=== PATIENT | female | born 1965 | race Two or more races ===

== ENCOUNTER → 2018-08-31 | Outpatient (CLI) | payer BC ==
[~2018-08-31] MED LIST: NEOM0.1S10; [UNRECOGNIZED DRUG - OTHER]
[2018-08-31 08:47] LABS: Basophils # (auto) 0 uL; Basophils % (auto) 0.5 % (0.0-2.0); Eosinophils # (auto) 0.1 uL; Eosinophils % (auto) 1.6 % (0.0-7.0); Hematocrit 41.9 % (36.0-46.0); Hemoglobin 14.1 g/dL (12.2-16.2); Lymphocytes # (auto) 2.7 uL; Lymphocytes % (auto) 38.4 % (10.0-50.0); Mean Corpuscular Hemoglobin 28.8 pg (28.0-32.0); Mean Corpuscular Hgb Conc. 33.6 g/dL (32.0-36.0); Mean Corpuscular Volume 85.7 fL (80.0-100.0); Monocytes # (auto) 0.5 uL; Monocytes % (auto) 7.3 % (0.0-12.0); Neutrophils # (auto) 3.6 uL; Neutrophils % (auto) 52.2 % (37.0-80.0); Nucleated Red Blood Cells % 0.1 %; Platelet Count (auto) 421 10^3/uL (140-450); Red Blood Cells 4.89 10^6/uL (4.0-5.20); Urine Amorphous Crystal MANY /hpf (None Seen); Urine Bacteria NONE SEEN /hpf (None Seen); Urine Blood Negative /uL (Negative); Urine WBC <1 /hpf (0 - 5)
[2018-08-31 09:03] LABS: Chloride 103 mmol/L (98-107); Potassium 4.1 mmol/L (3.5-5.1); Sodium 139 mmol/L (136-145)
[2018-08-31 09:23] LABS: Alanine Aminotransferase 21 U/L (13-56); Albumin 3.5 g/dL (3.4-5.0); Alkaline Phosphatase 90 U/L (45-117); Anion Gap 6 (5-15); Aspartate Aminotransferase 10 U/L (15-37); BUN/Creatinine Ratio 30.8; Bilirubin, Total 0.5 mg/dL (0.2-1.0); Blood Urea Nitrogen 20 mg/dL (7-18); Calcium 8.9 mg/dL (8.5-10.1); Carbon Dioxide 30 mmol/L (21-32); Cholesterol 206 mg/dL (< 200); GFR African American > 60 mL/min; GFR Non-African American > 60 mL/min; Glucose 104 mg/dL (74-106); HDL Cholesterol 42 mg/dL (40-59); LDL Cholesterol 151 mg/dL (< 100); Total Protein 7.3 g/dL (6.4-8.2); Triglycerides 121 mg/dL (< 150)
== END | disposition home or self-care (01) ==
LOC: LAB 07:32
PROVIDERS: ATTEND Nurse Practitioner
DX: E78.5 Hyperlipidemia, unspecified (principal)
CPT/HCPCS: 36415; 80053; 80061; 81001; 82306; 83036; 84443; 85025

== ENCOUNTER 2021-04-05 08:22 | Inpatient (IN) | payer BC ==
[~2021-04-05] VITALS: Ht 170.2 cm; Wt 107.0 kg
[2021-04-05 10:24] LABS: Basophils # (auto) 0 10 ^3/uL (0-0.2); Basophils % (auto) 0.1 % (0.0-2.0); Eosinophils # (auto) 0 10 ^3/uL (0-0.8); Hematocrit 40.9 % (36.0-46.0); Hemoglobin 14.2 g/dL (12.2-16.2); Lymphocytes # (auto) 0.5 10 ^3/uL (0.4-5.4); Lymphocytes % (auto) 6.7 % (10.0-50.0); Mean Corpuscular Hemoglobin 29.1 pg (28.0-32.0); Mean Corpuscular Hgb Conc. 34.7 g/dL (32.0-36.0); Mean Corpuscular Volume 83.9 fL (80.0-100.0); Monocytes # (auto) 0.3 10 ^3/uL (0-1.3); Monocytes % (auto) 4.7 % (0.0-12.0); Neutrophils # (auto) 6.6 10 ^3/uL (1.6-8.6); Neutrophils % (auto) 88.5 % (37.0-80.0); Nucleated Red Blood Cells % 0.1 %; Red Blood Cells 4.87 10^6/uL (4.0-5.20); Red Cell Distribution Width 13.7 % (11.8-14.3); White Blood Cell 7.4 10^3/uL (4.4-10.8)
[2021-04-05 10:40] LABS: Albumin 2.6 g/dL (3.4-5.0); Anion Gap 6 (5-15); Blood Urea Nitrogen 15 mg/dL (7-18); Calcium 8.7 mg/dL (8.5-10.1); Carbon Dioxide 30 mmol/L (21-32); Chloride 102 mmol/L (98-107); Glucose 130 mg/dL (74-106); Magnesium 2.6 mg/dL (1.6-2.6); Sodium 138 mmol/L (136-145)
[2021-04-05 10:46] LABS: Alanine Aminotransferase 28 U/L (13-56); Alkaline Phosphatase 54 U/L (45-117); Aspartate Aminotransferase 43 U/L (15-37); Bilirubin, Total 0.4 mg/dL (0.2-1.0); GFR African American 133 mL/min; GFR Non-African American 110 mL/min; Total Protein 7.3 g/dL (6.4-8.2)
[2021-04-05] MEDS ORDERED: MORPHINE SULFATE INJECTION 2 MG/ML SYRG IV PRN ×2 (13:30)
[2021-04-05] MEDS ORDERED: DOCUSATE CALCIUM 240 MG CAP PO PRN (13:30)
[2021-04-05] MEDS ORDERED: SODIUM CHLORIDE 0.9% 1,000 ML IV ONE (13:30)
[2021-04-05] MEDS ORDERED: LABETALOL HCL 5 MG/ML 4ML SYRINGE IV PRN (13:30)
[2021-04-05] MEDS ORDERED: ONDANSETRON HCL 4 MG/2 ML VIAL IV PRN (13:30)
[2021-04-05] MEDS ORDERED: NITROGLYCERIN 0.4 MG SL TAB SL PRN (13:30)
[2021-04-05] MEDS ORDERED: DEXTROSE (50%) 50ML SYRG IV PRN (13:30)
[2021-04-05] MEDS ORDERED: ACETAMINOPHEN 500 MG TAB PO PRN (13:30)
[2021-04-05 15:01] VITALS: BP 137/78
[2021-04-05] MEDS: CLINDAMYCIN 300MG IV 50 ML IV SCH ×2 (15:27→21:53)
[2021-04-05] MEDS: ACCU-CHEK COMFORT CURVE STRIP VI SCH ×2 (16:00→20:08)
[2021-04-05] MEDS: InsuLIN REG 1unit/0.01ml Soln (100units/ml) SC SCH ×2 (16:00→20:11)
[2021-04-05 17:00] VITALS: BP 155/96
[2021-04-05] MEDS ORDERED: LISI20TA28 PO (17:59)
[2021-04-05 21:40] VITALS: BP 130/81
[2021-04-05] MEDS: ENOXAPARIN SOD 40 MG/0.4 ML SYRINGE SC SCH (21:53)
[2021-04-05] MEDS: ALBUTEROL SULF HFA 90MCG INH 200DOSE IN PRN (22:29)
[2021-04-05] MEDS: BUDESONIDE (INHALATION) 180 MCG IH IN SCH (22:29)
[2021-04-06] MEDS: ACCU-CHEK COMFORT CURVE STRIP VI SCH ×6 (00:13→21:51)
[2021-04-06] MEDS: InsuLIN REG 1unit/0.01ml Soln (100units/ml) SC SCH ×6 (03:59→22:13)
[2021-04-06 05:38] VITALS: BP 114/83
[2021-04-06] MEDS: CLINDAMYCIN 300MG IV 50 ML IV SCH (05:49)
[2021-04-06 06:59] LABS: Basophils # (auto) 0 10 ^3/uL (0-0.2); Basophils % (auto) 0.1 % (0.0-2.0); Eosinophils # (auto) 0 10 ^3/uL (0-0.8); Hemoglobin 13.2 g/dL (12.2-16.2); Lymphocytes # (auto) 0.8 10 ^3/uL (0.4-5.4); Lymphocytes % (auto) 10.9 % (10.0-50.0); Mean Corpuscular Hemoglobin 28.5 pg (28.0-32.0); Mean Corpuscular Hgb Conc. 33.8 g/dL (32.0-36.0); Mean Corpuscular Volume 84.5 fL (80.0-100.0); Monocytes # (auto) 0.3 10 ^3/uL (0-1.3); Neutrophils # (auto) 6.4 10 ^3/uL (1.6-8.6); Red Blood Cells 4.62 10^6/uL (4.0-5.20); Red Cell Distribution Width 13.6 % (11.8-14.3); White Blood Cell 7.5 10^3/uL (4.4-10.8)
[2021-04-06 07:08] LABS: INR 1.06 (0.9-1.15)
[2021-04-06] MEDS: BUDESONIDE (INHALATION) 180 MCG IH IN SCH ×2 (07:11→22:00)
[2021-04-06] MEDS: ALBUTEROL SULF HFA 90MCG INH 200DOSE IN PRN (07:11)
[2021-04-06 07:17] LABS: Potassium 3.6 mmol/L (3.5-5.1)
[2021-04-06 07:29] LABS: Thyroid Stimulating Hormone 0.35 uIU/mL (0.358-3.74)
[2021-04-06 07:34] LABS: Albumin 2.3 g/dL (3.4-5.0); BUN/Creatinine Ratio 34.9; Bilirubin, Total 0.5 mg/dL (0.2-1.0); CRP High Sensitivity 7.38 mg/dL (< 0.3); Calcium 8.1 mg/dL (8.5-10.1); Total Protein 6.3 g/dL (6.4-8.2)
[2021-04-06] MEDS: AZITHROMYCIN 500MG/ 250ML 250 ML IV SCH (08:52)
[2021-04-06] MEDS: ZINC SULFATE 220mg CAP or TAB PO SCH (08:52)
[2021-04-06] MEDS: ASCORBIC ACID 1,000 MG TAB PO SCH (08:53)
[2021-04-06] MEDS: PANTOPRAZOLE 40 MG TAB PO SCH (08:53)
[2021-04-06] MEDS: ENOXAPARIN SOD 40 MG/0.4 ML SYRINGE SC SCH ×2 (08:53→21:51)
[2021-04-06] MEDS: CHOLECALCIFEROL (VITD3) 2,000 UNIT CAP/TAB PO SCH (08:53)
[2021-04-06 09:00] VITALS: BP 137/82
[2021-04-06] MEDS ORDERED: DexAMETHasone INJECTION 10 MG in D5W 5% 50 ML IV SCH (10:00)
[2021-04-06] MEDS: DOXYCYCLINE 100MG/250ML 250 ML IV SCH ×2 (10:30→21:51)
[2021-04-06] MEDS ORDERED: REMDESIVIR PER PHARMACY 0 ML IV SCH (10:30)
[2021-04-06] MEDS ORDERED: FUROSEMIDE 40 MG/4 ML VIAL IV ONE (10:30)
[2021-04-06] MEDS ORDERED: DEXTROSE (50%) 50ML SYRG IV PRN (10:30)
[2021-04-06 13:00] VITALS: BP 108/59
[2021-04-06] MEDS ORDERED: REMDESIVIR 200 MG in NS 210ml LOADING DOSE ADULT IV ONE (14:00)
[2021-04-06 17:00] VITALS: BP 109/69
[2021-04-06 22:00] VITALS: BP 125/74
[2021-04-07] MEDS: ALBUTEROL SULF HFA 90MCG INH 200DOSE IN PRN ×3 (01:35→22:24)
[2021-04-07 05:00] VITALS: BP 102/67
[2021-04-07] MEDS: InsuLIN REG 1unit/0.01ml Soln (100units/ml) SC SCH ×4 (06:59→22:10)
[2021-04-07] MEDS: ACCU-CHEK COMFORT CURVE STRIP VI SCH ×4 (06:59→21:21)
[2021-04-07 07:26] LABS: Basophils # (auto) 0.1 10 ^3/uL (0-0.2); Basophils % (auto) 0.6 % (0.0-2.0); Eosinophils # (auto) 0 10 ^3/uL (0-0.8); Hematocrit 40.8 % (36.0-46.0); Hemoglobin 14.3 g/dL (12.2-16.2); Lymphocytes # (auto) 0.9 10 ^3/uL (0.4-5.4); Lymphocytes % (auto) 10.1 % (10.0-50.0); Mean Corpuscular Hemoglobin 29.6 pg (28.0-32.0); Mean Corpuscular Hgb Conc. 35.1 g/dL (32.0-36.0); Mean Corpuscular Volume 84.4 fL (80.0-100.0); Monocytes # (auto) 0.5 10 ^3/uL (0-1.3); Monocytes % (auto) 5.8 % (0.0-12.0); Neutrophils # (auto) 7.3 10 ^3/uL (1.6-8.6); Neutrophils % (auto) 83.5 % (37.0-80.0); Nucleated Red Blood Cells % 0.1 %; Red Blood Cells 4.84 10^6/uL (4.0-5.20); Red Cell Distribution Width 13.5 % (11.8-14.3); White Blood Cell 8.7 10^3/uL (4.4-10.8)
[2021-04-07] MEDS: BUDESONIDE (INHALATION) 180 MCG IH IN SCH ×2 (07:36→22:23)
[2021-04-07 07:39] LABS: Albumin 2.4 g/dL (3.4-5.0); Calcium 8.3 mg/dL (8.5-10.1); Potassium 3.6 mmol/L (3.5-5.1)
[2021-04-07 07:41] LABS: BUN/Creatinine Ratio 42.6
[2021-04-07 07:43] LABS: Bilirubin, Total 0.6 mg/dL (0.2-1.0); Total Protein 7.2 g/dL (6.4-8.2)
[2021-04-07 09:00] VITALS: BP 110/71
[2021-04-07] MEDS: AZITHROMYCIN 500MG/ 250ML 250 ML IV SCH (09:45)
[2021-04-07] MEDS: CHOLECALCIFEROL (VITD3) 2,000 UNIT CAP/TAB PO SCH (10:00)
[2021-04-07] MEDS: ASCORBIC ACID 1,000 MG TAB PO SCH (10:00)
[2021-04-07] MEDS: POTASSIUM CHL 20 Meq TABLET PO SCH (10:00)
[2021-04-07] MEDS: ZINC SULFATE 220mg CAP or TAB PO SCH (10:00)
[2021-04-07] MEDS: PANTOPRAZOLE 40 MG TAB PO SCH (10:00)
[2021-04-07] MEDS: ENOXAPARIN SOD 40 MG/0.4 ML SYRINGE SC SCH ×2 (10:00→21:21)
[2021-04-07] MEDS: DexAMETHasone SOD PHOS 10MG/1ML VIAL INJ IV SCH (10:00)
[2021-04-07] MEDS: FUROSEMIDE 40 MG/4 ML VIAL IV SCH (10:00)
[2021-04-07] MEDS: DOXYCYCLINE 100MG/250ML 250 ML IV SCH ×2 (10:30→21:21)
[2021-04-07 13:00] VITALS: BP 112/66
[2021-04-07] MEDS: REMDESIVIR 100mg 100 MG in SODIUM CHL 0.9% 230 ML IV SCH (15:00)
[2021-04-07 17:00] VITALS: BP 120/79
[2021-04-07 22:00] VITALS: BP 112/76
[2021-04-08] MEDS ORDERED: TEMAZEPAM 15 MG CAP PO ONE (00:45)
[2021-04-08 05:00] VITALS: BP 117/76
[2021-04-08 06:49] LABS: Basophils # (auto) 0 10 ^3/uL (0-0.2); Eosinophils # (auto) 0 10 ^3/uL (0-0.8); Lymphocytes # (auto) 1.2 10 ^3/uL (0.4-5.4); Monocytes # (auto) 0.6 10 ^3/uL (0-1.3); Neutrophils % (auto) 86.7 % (37.0-80.0)
[2021-04-08 06:54] LABS: Basophils % (auto) 0.2 % (0.0-2.0); Hematocrit 39.4 % (36.0-46.0); Hemoglobin 13.2 g/dL (12.2-16.2); Lymphocytes % (auto) 8.9 % (10.0-50.0); Mean Corpuscular Hemoglobin 28.1 pg (28.0-32.0); Mean Corpuscular Hgb Conc. 33.6 g/dL (32.0-36.0); Mean Corpuscular Volume 83.6 fL (80.0-100.0); Monocytes % (auto) 4.2 % (0.0-12.0); Neutrophils # (auto) 11.6 10 ^3/uL (1.6-8.6); Red Blood Cells 4.71 10^6/uL (4.0-5.20); Red Cell Distribution Width 13.5 % (11.8-14.3); White Blood Cell 13.4 10^3/uL (4.4-10.8)
[2021-04-08] MEDS: ACCU-CHEK COMFORT CURVE STRIP VI SCH ×4 (06:58→21:41)
[2021-04-08] MEDS: InsuLIN REG 1unit/0.01ml Soln (100units/ml) SC SCH ×4 (06:59→22:05)
[2021-04-08] MEDS: ALBUTEROL SULF HFA 90MCG INH 200DOSE IN PRN ×2 (07:10→21:43)
[2021-04-08] MEDS: BUDESONIDE (INHALATION) 180 MCG IH IN SCH ×2 (07:10→21:43)
[2021-04-08 07:13] LABS: Albumin 2.2 g/dL (3.4-5.0); Calcium 8.3 mg/dL (8.5-10.1); Potassium 3.6 mmol/L (3.5-5.1)
[2021-04-08 07:16] LABS: BUN/Creatinine Ratio 59.3
[2021-04-08 07:18] LABS: Bilirubin, Total 0.5 mg/dL (0.2-1.0); Total Protein 6.4 g/dL (6.4-8.2)
[2021-04-08 09:00] VITALS: BP 123/75
[2021-04-08] MEDS: CHOLECALCIFEROL (VITD3) 2,000 UNIT CAP/TAB PO SCH (09:56)
[2021-04-08] MEDS: POTASSIUM CHL 20 Meq TABLET PO SCH (09:56)
[2021-04-08] MEDS: ZINC SULFATE 220mg CAP or TAB PO SCH (09:56)
[2021-04-08] MEDS: FUROSEMIDE 40 MG/4 ML VIAL IV SCH (09:56)
[2021-04-08] MEDS: PANTOPRAZOLE 40 MG TAB PO SCH (09:56)
[2021-04-08] MEDS: ASCORBIC ACID 1,000 MG TAB PO SCH (09:56)
[2021-04-08] MEDS: ENOXAPARIN SOD 40 MG/0.4 ML SYRINGE SC SCH ×2 (09:56→21:41)
[2021-04-08] MEDS: DexAMETHasone SOD PHOS 10MG/1ML VIAL INJ IV SCH (09:56)
[2021-04-08] MEDS: DOXYCYCLINE 100MG/250ML 250 ML IV SCH ×2 (09:57→21:41)
[2021-04-08 13:00] VITALS: BP 118/67
[2021-04-08] MEDS: REMDESIVIR 100mg 100 MG in SODIUM CHL 0.9% 230 ML IV SCH (15:00)
[2021-04-08 16:44] VITALS: BP 118/67
[2021-04-08 17:00] VITALS: BP 127/80
[2021-04-08 22:00] VITALS: BP 125/68
[2021-04-09 05:24] VITALS: BP 106/59
[2021-04-09 05:51] LABS: Basophils # (auto) 0 10 ^3/uL (0-0.2); Eosinophils # (auto) 0 10 ^3/uL (0-0.8); Monocytes # (auto) 0.4 10 ^3/uL (0-1.3); Red Cell Distribution Width 13.6 % (11.8-14.3)
[2021-04-09 05:53] LABS: Basophils % (auto) 0.1 % (0.0-2.0); Eosinophils % (auto) 0.2 % (0.0-7.0); Hematocrit 40.2 % (36.0-46.0); Lymphocytes # (auto) 1.5 10 ^3/uL (0.4-5.4); Lymphocytes % (auto) 11.2 % (10.0-50.0); Mean Corpuscular Hgb Conc. 34.8 g/dL (32.0-36.0); Mean Corpuscular Volume 83.4 fL (80.0-100.0); Monocytes % (auto) 3.4 % (0.0-12.0); Neutrophils # (auto) 11.1 10 ^3/uL (1.6-8.6); Neutrophils % (auto) 85.1 % (37.0-80.0); Red Blood Cells 4.83 10^6/uL (4.0-5.20)
[2021-04-09 06:13] LABS: Albumin 2.3 g/dL (3.4-5.0); BUN/Creatinine Ratio 57.4; Calcium 8.3 mg/dL (8.5-10.1); Potassium 3.4 mmol/L (3.5-5.1)
[2021-04-09 06:16] LABS: Bilirubin, Total 0.5 mg/dL (0.2-1.0); Total Protein 6.7 g/dL (6.4-8.2)
[2021-04-09] MEDS: ACCU-CHEK COMFORT CURVE STRIP VI SCH ×4 (06:17→21:45)
[2021-04-09] MEDS: InsuLIN REG 1unit/0.01ml Soln (100units/ml) SC SCH ×4 (06:17→21:48)
[2021-04-09 09:00] VITALS: BP 108/62
[2021-04-09] MEDS: ASCORBIC ACID 1,000 MG TAB PO SCH (09:07)
[2021-04-09] MEDS: CHOLECALCIFEROL (VITD3) 2,000 UNIT CAP/TAB PO SCH (09:07)
[2021-04-09] MEDS: FUROSEMIDE 40 MG/4 ML VIAL IV SCH (09:08)
[2021-04-09] MEDS: PANTOPRAZOLE 40 MG TAB PO SCH (09:09)
[2021-04-09] MEDS: POTASSIUM CHL 20 Meq TABLET PO SCH (09:09)
[2021-04-09] MEDS: ZINC SULFATE 220mg CAP or TAB PO SCH (09:09)
[2021-04-09] MEDS: DOXYCYCLINE 100MG/250ML 250 ML IV SCH ×2 (09:10→21:57)
[2021-04-09] MEDS: ENOXAPARIN SOD 40 MG/0.4 ML SYRINGE SC SCH ×2 (09:10→21:45)
[2021-04-09] MEDS: DexAMETHasone SOD PHOS 10MG/1ML VIAL INJ IV SCH (09:10)
[2021-04-09] MEDS: BUDESONIDE (INHALATION) 180 MCG IH IN SCH ×2 (09:26→19:50)
[2021-04-09] MEDS: ALBUTEROL SULF HFA 90MCG INH 200DOSE IN PRN ×2 (09:26→19:50)
[2021-04-09 12:45] VITALS: BP_SYST 110; BP_SYST 117; BP_DIAS 70; BP_DIAS 75
[2021-04-09] MEDS: REMDESIVIR 100mg 100 MG in SODIUM CHL 0.9% 230 ML IV SCH (15:35)
[2021-04-09 16:22] VITALS: BP 116/64
[2021-04-09] MEDS ORDERED: POTASSIUM CHL 20 Meq TABLET PO ONE (18:15)
[2021-04-09 22:00] VITALS: BP 114/76
[2021-04-10] VITALS (8 sets, daily range): BP systolic 95–115; BP diastolic 57–74
[2021-04-10 06:13] LABS: Basophils # (auto) 0 10 ^3/uL (0-0.2); Eosinophils # (auto) 0.1 10 ^3/uL (0-0.8); Red Cell Distribution Width 13.6 % (11.8-14.3)
[2021-04-10 06:16] LABS: Basophils % (auto) 0.1 % (0.0-2.0); Eosinophils % (auto) 0.8 % (0.0-7.0); Hematocrit 40.6 % (36.0-46.0); Lymphocytes # (auto) 1.9 10 ^3/uL (0.4-5.4); Lymphocytes % (auto) 18.3 % (10.0-50.0); Mean Corpuscular Hemoglobin 29.1 pg (28.0-32.0); Mean Corpuscular Hgb Conc. 34.5 g/dL (32.0-36.0); Mean Corpuscular Volume 84.1 fL (80.0-100.0); Monocytes # (auto) 0.4 10 ^3/uL (0-1.3); Monocytes % (auto) 4.2 % (0.0-12.0); Neutrophils % (auto) 76.6 % (37.0-80.0); Red Blood Cells 4.83 10^6/uL (4.0-5.20); White Blood Cell 10.5 10^3/uL (4.4-10.8)
[2021-04-10] MEDS: InsuLIN REG 1unit/0.01ml Soln (100units/ml) SC SCH ×4 (06:20→21:48)
[2021-04-10] MEDS: ACCU-CHEK COMFORT CURVE STRIP VI SCH ×4 (06:20→21:46)
[2021-04-10 06:47] LABS: Albumin 2.3 g/dL (3.4-5.0); Calcium 8.5 mg/dL (8.5-10.1); Potassium 3.9 mmol/L (3.5-5.1)
[2021-04-10 06:49] LABS: BUN/Creatinine Ratio 52.6
[2021-04-10 06:52] LABS: Bilirubin, Total 0.5 mg/dL (0.2-1.0); Total Protein 6.7 g/dL (6.4-8.2)
[2021-04-10] MEDS: BUDESONIDE (INHALATION) 180 MCG IH IN SCH ×2 (07:31→19:26)
[2021-04-10] MEDS: ALBUTEROL SULF HFA 90MCG INH 200DOSE IN PRN ×2 (07:32→19:26)
[2021-04-10] MEDS: POTASSIUM CHL 20 Meq TABLET PO SCH (09:50)
[2021-04-10] MEDS: ZINC SULFATE 220mg CAP or TAB PO SCH (09:50)
[2021-04-10] MEDS: DexAMETHasone SOD PHOS 10MG/1ML VIAL INJ IV SCH (09:50)
[2021-04-10] MEDS: ASPirin-EC 81 mg tab PO SCH (09:50)
[2021-04-10] MEDS: PANTOPRAZOLE 40 MG TAB PO SCH (09:51)
[2021-04-10] MEDS: CHOLECALCIFEROL (VITD3) 2,000 UNIT CAP/TAB PO SCH (09:51)
[2021-04-10] MEDS: ASCORBIC ACID 1,000 MG TAB PO SCH (09:51)
[2021-04-10] MEDS: ENOXAPARIN SOD 40 MG/0.4 ML SYRINGE SC SCH ×2 (09:52→21:46)
[2021-04-10] MEDS: DOXYCYCLINE 100MG/250ML 250 ML IV SCH ×2 (09:52→22:30)
[2021-04-10] MEDS: FUROSEMIDE 40 MG/4 ML VIAL IV SCH (10:03)
[2021-04-10] MEDS: REMDESIVIR 100mg 100 MG in SODIUM CHL 0.9% 230 ML IV SCH (12:55)
[2021-04-10] MEDS: guaiFENesin-DM 100/10mg/5ml SYR PO PRN (19:50)
[2021-04-11] MEDS: guaiFENesin-DM 100/10mg/5ml SYR PO PRN ×4 (00:39→22:36)
[2021-04-11 05:00] VITALS: BP 126/75
[2021-04-11 06:40] LABS: Red Cell Distribution Width 13.7 % (11.8-14.3); White Blood Cell 13.3 10^3/uL (4.4-10.8)
[2021-04-11 06:42] LABS: Hematocrit 41.8 % (36.0-46.0); Hemoglobin 14.6 g/dL (12.2-16.2); Mean Corpuscular Hgb Conc. 34.8 g/dL (32.0-36.0); Mean Corpuscular Volume 83.5 fL (80.0-100.0); Red Blood Cells 5.01 10^6/uL (4.0-5.20)
[2021-04-11] MEDS: ACCU-CHEK COMFORT CURVE STRIP VI SCH ×4 (06:48→22:02)
[2021-04-11] MEDS: InsuLIN REG 1unit/0.01ml Soln (100units/ml) SC SCH ×4 (06:49→22:04)
[2021-04-11 06:58] LABS: Basophils % (manual) 0 (0.0-2.0); Blast Cells 0; Eosinophils % (manual) 0 (0-7); Myelocytes % 0; Promyelocytes % 0; Reactive Lymphocytes 0
[2021-04-11 07:00] LABS: Potassium 3.7 mmol/L (3.5-5.1)
[2021-04-11 07:06] LABS: Albumin 2.4 g/dL (3.4-5.0); BUN/Creatinine Ratio 68.6; Bilirubin, Total 0.4 mg/dL (0.2-1.0); Calcium 8.6 mg/dL (8.5-10.1); Total Protein 6.6 g/dL (6.4-8.2)
[2021-04-11 07:58] LABS: Band Neutrophils % (manual) 2; Lymphocytes % (manual) 27 (10.0-50.0); Metamyelocytes % 1; Monocytes % (manual) 5 (0-12)
[2021-04-11 09:22] VITALS: BP 104/68
[2021-04-11] MEDS: DexAMETHasone SOD PHOS 10MG/1ML VIAL INJ IV SCH (09:41)
[2021-04-11] MEDS: PANTOPRAZOLE 40 MG TAB PO SCH (09:41)
[2021-04-11] MEDS: FUROSEMIDE 40 MG/4 ML VIAL IV SCH (09:41)
[2021-04-11] MEDS: POTASSIUM CHL 20 Meq TABLET PO SCH (09:41)
[2021-04-11] MEDS: ASPirin-EC 81 mg tab PO SCH (09:41)
[2021-04-11] MEDS: ZINC SULFATE 220mg CAP or TAB PO SCH (09:41)
[2021-04-11] MEDS: DOXYCYCLINE 100MG/250ML 250 ML IV SCH ×2 (09:42→22:06)
[2021-04-11] MEDS: CHOLECALCIFEROL (VITD3) 2,000 UNIT CAP/TAB PO SCH (09:42)
[2021-04-11] MEDS: ENOXAPARIN SOD 40 MG/0.4 ML SYRINGE SC SCH ×2 (09:42→22:06)
[2021-04-11] MEDS: ASCORBIC ACID 1,000 MG TAB PO SCH (09:42)
[2021-04-11] MEDS: ALBUTEROL SULF HFA 90MCG INH 200DOSE IN PRN ×2 (11:32→21:41)
[2021-04-11] MEDS: BUDESONIDE (INHALATION) 180 MCG IH IN SCH ×2 (11:32→21:41)
[2021-04-11 12:47] VITALS: BP 109/74
[2021-04-11] MEDS ORDERED: CHOL1CAP47 PO (13:57)
[2021-04-11] MEDS ORDERED: ASPI-543 PO (13:57)
[2021-04-11] MEDS ORDERED: ZINC220T6 PO (13:57)
[2021-04-11] MEDS ORDERED: DEXT1SYP9 PO (13:57)
[2021-04-11] MEDS ORDERED: DEX4T PO (13:57)
[2021-04-11] MEDS ORDERED: ALBUAER3 IN (13:57)
[2021-04-11] MEDS ORDERED: FURO20TA3 PO (13:57)
[2021-04-11] MEDS ORDERED: ASCO10003 PO (13:57)
[2021-04-11 17:25] VITALS: BP 127/80
[2021-04-11 20:00] VITALS: BP 117/74
[2021-04-11 21:59] VITALS: BP 117/74
[2021-04-12 05:00] VITALS: BP 107/72
[2021-04-12 05:27] LABS: Red Cell Distribution Width 13.8 % (11.8-14.3)
[2021-04-12 05:29] LABS: Hemoglobin 14.8 g/dL (12.2-16.2); Mean Corpuscular Hemoglobin 28.4 pg (28.0-32.0); Mean Corpuscular Hgb Conc. 33.7 g/dL (32.0-36.0); Mean Corpuscular Volume 84.3 fL (80.0-100.0); Red Blood Cells 5.22 10^6/uL (4.0-5.20); White Blood Cell 15.1 10^3/uL (4.4-10.8)
[2021-04-12 05:49] LABS: Potassium 4.1 mmol/L (3.5-5.1)
[2021-04-12 05:57] LABS: Albumin 2.5 g/dL (3.4-5.0); BUN/Creatinine Ratio 48.3; Bilirubin, Total 0.6 mg/dL (0.2-1.0); Calcium 8.7 mg/dL (8.5-10.1); Total Protein 6.7 g/dL (6.4-8.2)
[2021-04-12 06:03] LABS: Basophils % (manual) 0 (0.0-2.0); Blast Cells 0; Eosinophils % (manual) 0 (0-7); Metamyelocytes % 0; Myelocytes % 0; Promyelocytes % 0; Reactive Lymphocytes 0
[2021-04-12] MEDS: ACCU-CHEK COMFORT CURVE STRIP VI SCH ×3 (06:33→17:00)
[2021-04-12] MEDS: InsuLIN REG 1unit/0.01ml Soln (100units/ml) SC SCH ×3 (06:33→17:00)
[2021-04-12] MEDS: ALBUTEROL SULF HFA 90MCG INH 200DOSE IN PRN (07:09)
[2021-04-12] MEDS: BUDESONIDE (INHALATION) 180 MCG IH IN SCH (07:10)
[2021-04-12 08:27] VITALS: BP 100/62
[2021-04-12] MEDS: FUROSEMIDE 40 MG/4 ML VIAL IV SCH (08:35)
[2021-04-12] MEDS: POTASSIUM CHL 20 Meq TABLET PO SCH (08:35)
[2021-04-12] MEDS: ZINC SULFATE 220mg CAP or TAB PO SCH (08:35)
[2021-04-12] MEDS: ASPirin-EC 81 mg tab PO SCH (08:35)
[2021-04-12] MEDS: DexAMETHasone SOD PHOS 10MG/1ML VIAL INJ IV SCH (08:35)
[2021-04-12] MEDS: guaiFENesin-DM 100/10mg/5ml SYR PO PRN (08:36)
[2021-04-12] MEDS: ASCORBIC ACID 1,000 MG TAB PO SCH (08:36)
[2021-04-12] MEDS: CHOLECALCIFEROL (VITD3) 2,000 UNIT CAP/TAB PO SCH (08:36)
[2021-04-12] MEDS: ENOXAPARIN SOD 40 MG/0.4 ML SYRINGE SC SCH (08:36)
[2021-04-12] MEDS: PANTOPRAZOLE 40 MG TAB PO SCH (08:36)
[2021-04-12] MEDS: DOXYCYCLINE 100MG/250ML 250 ML IV SCH (08:36)
[2021-04-12 08:52] LABS: Band Neutrophils % (manual) 1; Lymphocytes % (manual) 16 (10.0-50.0); Monocytes % (manual) 5 (0-12)
[2021-04-12] MEDS ORDERED: LEVO750T64 PO (10:28)
[2021-04-12] MEDS ORDERED: levoFLOXacin 250 MG TAB PO ONE (10:30)
[2021-04-12 12:31] VITALS: BP 94/57
[2021-04-12 16:56] VITALS: BP 106/69
== END 2021-04-12 17:31 | disposition home or self-care (01) | DRG 177 ==
LOC: ER 08:22 → TELE 13:27 → EAST 14:50 → TELE-EAST 15:25
PROVIDERS: ADMIT Family Medicine; ATTEND Internal Medicine
PROC: XW033E5 Introduction of Remdesivir Anti-infective into Peripheral Vein, Percutaneous Approach, New Technology Group 5 (ICD-10-PCS; principal; 2021-04-06)
DX: U07.1 COVID-19 (principal); J96.01 Acute respiratory failure with hypoxia; J12.82 Pneumonia due to coronavirus disease 2019; E11.65 Type 2 diabetes mellitus with hyperglycemia; E66.9 Obesity, unspecified; I10 Essential (primary) hypertension; Z88.0 Allergy status to penicillin; Z68.36 Body mass index [BMI] 36.0-36.9, adult
CPT/HCPCS: 36415; 36600; 71045; 80053; 82306; 82728; 82805; 82962; 83036; 83605; 83615; 83735; 84443; 84484; 85007; 85025; 85027; 85379; 85610; 86141; 87040; 87426; 93005; 93970; 94640; 96360; 96372; 99291; G0378; J1100; J1815; J3490; J7060

== ENCOUNTER → 2021-05-30 | Outpatient (CLI) | payer BC ==
[~2021-05-30] MED LIST changes: +ALBUAER3 IN; +ASCO10003 PO; +ASPI-543 PO; +CHOL1CAP47 PO; +DEX4T PO; +DEXT1SYP9 PO; +FURO20TA3 PO; +LEVO750T64 PO; +LISI20TA28 PO; +ZINC220T6 PO
== END | disposition home or self-care (01) ==
LOC: LAB 10:07
PROVIDERS: ATTEND Internal Medicine Pulmonary Disease
DX: Z01.812 Encounter for preprocedural laboratory examination (principal); Z20.822 Contact with and (suspected) exposure to COVID-19
CPT/HCPCS: 36415; 87426

== ENCOUNTER → 2021-10-16 | Outpatient (CLI) | payer BC ==
[2021-10-16 10:57] LABS: Basophils # (auto) 0 10 ^3/uL (0-0.2); Basophils % (auto) 0.5 % (0.0-2.0); Eosinophils # (auto) 0.2 10 ^3/uL (0-0.8); Eosinophils % (auto) 2.5 % (0.0-7.0); Hematocrit 42.2 % (36.0-46.0); Hemoglobin 14.1 g/dL (12.2-16.2); Lymphocytes # (auto) 1.8 10 ^3/uL (0.4-5.4); Lymphocytes % (auto) 27.6 % (10.0-50.0); Mean Corpuscular Hemoglobin 28.2 pg (28.0-32.0); Mean Corpuscular Hgb Conc. 33.5 g/dL (32.0-36.0); Mean Corpuscular Volume 84.2 fL (80.0-100.0); Monocytes # (auto) 0.4 10 ^3/uL (0-1.3); Monocytes % (auto) 6.2 % (0.0-12.0); Neutrophils % (auto) 63.2 % (37.0-80.0); Nucleated Red Blood Cells % 0.1 %; Red Blood Cells 5.01 10^6/uL (4.0-5.20); Red Cell Distribution Width 14.6 % (11.8-14.3); White Blood Cell 6.4 10^3/uL (4.4-10.8)
[2021-10-16 11:38] LABS: Potassium 4.2 mmol/L (3.5-5.1)
[2021-10-16 11:49] LABS: Albumin 3.6 g/dL (3.4-5.0); BUN/Creatinine Ratio 26.7; Bilirubin, Total 0.7 mg/dL (0.2-1.0); Calcium 8.9 mg/dL (8.5-10.1); Total Protein 7.2 g/dL (6.4-8.2)
[2021-10-16 12:52] LABS: Urine Bacteria FEW /hpf (None Seen); Urine Blood Negative /uL (Negative); Urine Specific Gravity 1.006 (1.001-1.035); Urine WBC <1 /hpf (0 - 5)
== END | disposition home or self-care (01) ==
LOC: LAB 10:11
PROVIDERS: ATTEND Nurse Practitioner
DX: E78.5 Hyperlipidemia, unspecified (principal); I10 Essential (primary) hypertension
CPT/HCPCS: 36415; 80053; 80061; 81001; 85025

== ENCOUNTER 2023-04-23 15:57 | Emergency (ER) | payer BC ==
[~2023-04-23 15:57] MED LIST changes: +LEVO750T40 PO; -LEVO750T64 PO; -LISI20TA28 PO; +LISI20TA56 PO
== END 2023-04-23 16:10 | disposition left against medical advice (07) ==
LOC: ER 15:57
DX: T14.8XXA Other injury of unspecified body region, initial encounter (principal); Z53.21 Procedure and treatment not carried out due to patient leaving prior to being seen by health care provider; W57.XXXA Bitten or stung by nonvenomous insect and other nonvenomous arthropods, initial encounter; Y93.89 Activity, other specified; Y92.89 Other specified places as the place of occurrence of the external cause; Y99.8 Other external cause status

== ENCOUNTER → 2025-03-11 | Outpatient (CLI) | payer BC ==
[2025-03-11 08:27] LABS: Hematocrit 42.3 % (36.0-46.0); Hemoglobin 14.0 g/dL (12.2-16.2); Mean Corpuscular Hemoglobin 28.5 pg (28.0-32.0); Mean Corpuscular Volume 86.3 fL (80.0-100.0); Nucleated Red Blood Cells % 0.1 %; Urine Protein, UAD Negative (Negative)
[2025-03-11 08:51] LABS: Alanine Aminotransferase 14 U/L (7-40); Albumin 4.5 g/dL (3.2-4.8); Alkaline Phosphatase 94 U/L (46-116); Anion Gap 9 (5-15); BUN/Creatinine Ratio 23.1 (10.0-20.0); Blood Urea Nitrogen 15 mg/dL (9-23); Calcium 9.8 mg/dL (8.7-10.4); Carbon Dioxide 29 mmol/L (20-31); Chloride 104 mmol/L (98-107); Cholesterol 175 mg/dL (< 200); Glucose 105 mg/dL (74-106); Potassium 4.2 mmol/L (3.5-5.1); Sodium 142 mmol/L (136-145); Total Protein 6.7 g/dL (5.7-8.2); Triglycerides 97 mg/dL (< 150)
[2025-03-11 08:52] LABS: Bilirubin, Total 0.4 mg/dL (0.2-1.0)
[2025-03-11 08:53] LABS: HDL Cholesterol 37 mg/dL (40-59)
== END | disposition home or self-care (01) ==
LOC: LAB 07:46
PROVIDERS: ATTEND Nurse Practitioner
DX: I10 Essential (primary) hypertension (principal); E78.5 Hyperlipidemia, unspecified; R73.9 Hyperglycemia, unspecified
CPT/HCPCS: 36415; 80053; 80061; 81001; 83036; 84443; 85025